=== PATIENT | male | born 1945 | race Caucasian/White ===

== ENCOUNTER 2018-02-18 08:52 | Emergency (ER) | payer OTHER ==
[~2018-02-18] VITALS: Ht 190.5 cm; Wt 104.3 kg
[2018-02-18 09:08] VITALS: Ht 190.5 cm; Wt 104.3 kg
[2018-02-18 13:20] VITALS: BP 159/76
== END 2018-02-18 13:20 | disposition home or self-care (01) ==
LOC: ED 08:52
DX: S82.192A Other fracture of upper end of left tibia, initial encounter for closed fracture (principal); I10 Essential (primary) hypertension; E78.00 Pure hypercholesterolemia, unspecified; I48.91 Unspecified atrial fibrillation; X58.XXXA Exposure to other specified factors, initial encounter; Y93.89 Activity, other specified; Y92.89 Other specified places as the place of occurrence of the external cause; Y99.8 Other external cause status
CPT/HCPCS: Q0092